=== PATIENT | male | born 1970 | race Caucasian/White ===

== ENCOUNTER 2020-11-11 00:02 | Observation (INO) ==
[2020-11-11] MEDS ORDERED: Pantoprazole VIAL 40 MG VIAL IV ONE (01:16)
[2020-11-11] MEDS ORDERED: NS 0.9% 1000 ml BAG 1,000 ML IV ONE (01:16)
[2020-11-11] MEDS ORDERED: Ondansetron 4 mg VIAL 2 MG/ML 2 ml VIAL IV ONE (01:16)
[2020-11-11 01:21] LABS: ABS Basophils 0.1 10^3/ul (0-0.2); ABS Eosinophils 0.1 10^3/ul (0-0.6); ABS Lymphocytes 1.3 10^3/ul (1.0-4.8); ABS Monocytes 0.7 10^3/ul (0-0.8); ABS Neutrophils 8.3 10^3/ul (1.5-7.7); Eosinophil % 0.8 %; Hematocrit 47 % (42-52); Hemoglobin 16.9 g/dL (14.0-18.0); Lymphocyte % 12.2 %; Mean Corpuscular HGB Conc 36 g/dL (31-36); Mean Corpuscular Hemoglobin 31 pg (27-31); Mean Corpuscular Volume 87 fL (80-94); Mean Platelet Volume 7.1 fL (7.4-10.4); Platelet Count 263 10^3/uL (150-450); Red Blood Count 5.44 10^6 /uL (4.18-5.48); Red Cell Distribution Width 13 % (10-15); White Blood Count 10.4 10^3/uL (3.5-10.8)
[2020-11-11 01:38] LABS: Albumin 4.7 g/dL (3.2-5.2); Albumin/Globulin Ratio 1.5 (1-3); C Reactive Protein 4.28 mg/L (<8.01); Calcium 10.1 mg/dL (8.6-10.3); EGFR African American 72.3 (>60); EGFR Non-African American 59.8 (>60); Globulin 3.1 g/dL (2-4); Potassium 3.9 mmol/L (3.5-5.0); Total Bilirubin 4.8 mg/dL (0.2-1.0); Total Protein 7.8 g/dL (6.4-8.9)
[2020-11-11] MEDS ORDERED: Iohexol 300 (CONTRAST) 10 ML SDV IV ONE (02:24)
[2020-11-11 03:13] LABS: Urine Appearance Clear; Urine Bilirubin Negative (Negative); Urine Blood Negative (Negative); Urine Color Amber; Urine Glucose Negative (Negative); Urine Ketones Trace (Negative); Urine Nitrite Negative (Negative); Urine Protein Negative (Negative); Urine Urobilinogen Positive (Negative)
[2020-11-11 03:19] LABS: Urine Specific Gravity > 1.030 (1.010-1.030)
[2020-11-11] MEDS ORDERED: Piperacillin/Tazobac ADVAN 3.375 GM in NS 0.9% 100 ml BAG 100 ML IVPB ONE (06:02)
[2020-11-11] MEDS ORDERED: Ondansetron 4 mg VIAL 2 MG/ML 2 ml VIAL IV PRN (10:32)
[2020-11-11] MEDS ORDERED: Al Hydrox/Mg Hydrox/Simet LIQ 30 ML UDC PO PRN (10:32)
[2020-11-11] MEDS ORDERED: Morphine 2 MG/ML SYRINGE IV PRN (10:43)
[2020-11-11] MEDS ORDERED: Senna TAB 8.6 mg TAB PO PRN (10:43)
[2020-11-11] MEDS: NS 0.9% 1000 ml BAG 1,000 ML IV SCH ×2 (12:46→20:33)
[2020-11-11] MEDS ORDERED: Enoxaparin 40 MG/0.4 ML SYR SUBCUT SCH (14:00)
[2020-11-12] MEDS: NS 0.9% 1000 ml BAG 1,000 ML IV SCH ×2 (03:19→10:04)
[2020-11-12 07:00] LABS: Albumin 3.5 g/dL (3.2-5.2); Albumin/Globulin Ratio 1.4 (1-3); BUN/Creatinine Ratio 15.4 (8-20); Calcium 8.4 mg/dL (8.6-10.3); EGFR African American 79.5 (>60); EGFR Non-African American 65.7 (>60); Globulin 2.5 g/dL (2-4); Indirect Bilirubin 1.3 mg/dL (0.3-1.0); Potassium 3.7 mmol/L (3.5-5.0); Total Bilirubin 1.9 mg/dL (0.2-1.0)
[2020-11-12 07:53] LABS: ABS Basophils 0.1 10^3/ul (0-0.2); ABS Eosinophils 0.2 10^3/ul (0-0.6); ABS Lymphocytes 2.4 10^3/ul (1.0-4.8); ABS Monocytes 0.5 10^3/ul (0-0.8); ABS Neutrophils 2.8 10^3/ul (1.5-7.7); Eosinophil % 2.9 %; Hematocrit 43 % (42-52); Hemoglobin 14.9 g/dL (14.0-18.0); Lymphocyte % 40.6 %; Mean Corpuscular HGB Conc 35 g/dL (31-36); Mean Corpuscular Hemoglobin 31 pg (27-31); Mean Corpuscular Volume 89 fL (80-94); Mean Platelet Volume 7.3 fL (7.4-10.4); Nucleated Red Blood Cells % 0.1; Platelet Count 199 10^3/uL (150-450); Red Blood Count 4.87 10^6 /uL (4.18-5.48); Red Cell Distribution Width 13 % (10-15); White Blood Count 5.8 10^3/uL (3.5-10.8)
[2020-11-12] MEDS ORDERED: Pantoprazole VIAL 40 MG VIAL IV SCH (09:00)
[2020-11-12] MEDS ORDERED: Bupivacaine 0.25% SDV 30 ML ONE (10:23)
[2020-11-12] MEDS ORDERED: ceFAZolin 2 GM PREMIX 0 GM/0 ML BAG ONE (11:11)
[2020-11-12] MEDS ORDERED: Clindamycin 900 MG/D5W BAG 900 MG/50 ML BAG IVPB ONE (12:08)
[2020-11-12] MEDS ORDERED: fentaNYL 100 mcg/2 ml 50 MCG/ML VIAL ONE ×2 (12:10→14:35)
[2020-11-12] MEDS ORDERED: ACETAMINOPHEN 1 GM/100 ML ONE (12:10)
[2020-11-12] MEDS ORDERED: Propofol 10 MG/ML 20 ML BTL ONE (12:10)
[2020-11-12] MEDS ORDERED: Rocuronium 50 mg VIAL 10 mg/ml 5 ml VIAL (50 mg) ONE (12:10)
[2020-11-12] MEDS ORDERED: Midazolam 2 mg/2 ml VIAL 1 mg/ml 2 ml VIAL (2 mg) ONE (12:10)
[2020-11-12] MEDS ORDERED: Lidocaine 2% PF 5 ML VIAL ONE (12:10)
[2020-11-12] MEDS ORDERED: Succinylcholine 200 mg VIAL 20 mg/ml 10 ml VIAL (200 mg) ONE (12:10)
[2020-11-12] MEDS ORDERED: Dexamethasone IV 4 MG/ML VIAL 1 ml VIAL ONE (12:10)
[2020-11-12] MEDS ORDERED: Ondansetron 4 mg VIAL 2 MG/ML 2 ml VIAL ONE (12:10)
[2020-11-12] MEDS ORDERED: fentaNYL 100 mcg/2 ml 50 MCG/ML VIAL IV PRN (12:51)
[2020-11-12] MEDS ORDERED: Naloxone 0.4 mg VIAL 0.4 mg/ml 1 ml VIAL IV PRN (12:51)
[2020-11-12] MEDS ORDERED: DiMENhydriNATE IV 50 mg/ml 1 ml VIAL IV PUSH PRN (12:51)
[2020-11-12 15:36] VITALS: BP 150/87
== END 2020-11-12 16:02 | disposition home or self-care (01) ==
LOC: SSU 00:02 → ED 00:02 → SSU 11:28
PROVIDERS: ADMIT Pediatrics; ATTEND Surgery